=== PATIENT | female | born 1960 | race Caucasian/White ===

== ENCOUNTER → 2024-11-21 | Outpatient (CLI) | payer BC, SELFPAY ==
[2024-11-21 16:07] LABS: Collection Type, Urine Clean Catch
[2024-11-21 17:42] LABS: Bilirubin,Urine Negative (Negative); Blood,Urine Negative (Negative); Clarity,Urine Clear (Clear/Hazy); Color,Urine Lt-Yellow (Lt Yel-Yel); Culture Indicated,Urine Not Indicated; Glucose, Urine Negative (Negative); Ketones,Urine Negative (Negative); Leukocyte Esterase,Urine Negative (Negative); Nitrite,Urine Negative (Negative); Protein,Urine Negative (Neg - Trace); RBC,Urine 1 /hpf (0-3); Specific Gravity,Urine 1.016 (1.001-1.035); Squamous Epithelial Cell,Urine < 1 /hpf (0-5); Urobilinogen,Urine Negative mg/dL (0.0-1.0); WBC,Urine 1 /hpf (0-5)
== END | disposition home or self-care (01) ==
LOC: SLDO 16:05
PROVIDERS: PCP Internal Medicine; Referring Provider Internal Medicine; Visit Provider Internal Medicine
DX: N39.0 Urinary tract infection, site not specified (principal)
CPT/HCPCS: 81001

== ENCOUNTER → 2025-02-05 | Outpatient (CLI) | payer BC, SELFPAY ==
--- NOTE | 2025-02-05 11:04 | XR_ITS ---
Examination: PA lateral chest 2 views TECHNIQUE: Upright PA lateral chest 2 views Exam date and time: February 05, 2025 1133 hours Comparison August 23, 2023 INDICATIONS: Coughing one week, history pneumonia, diagnosis rheumatoid arthritis FINDINGS: Minimal prominence left ventricle Mild to moderate hyperexpansion No pneumonia or pulmonary edema Prominent osteopenia with mild kyphosis dorsal spine, mild to moderate diffuse thoracic disc narrowing IMPRESSION: Mild to moderate hyperexpansion No pneumonia or pulmonary edema
== END | disposition home or self-care (01) ==
PROVIDERS: PCP Internal Medicine; Referring Provider Internal Medicine; Visit Provider Internal Medicine
DX: R91.8 Other nonspecific abnormal finding of lung field (principal)
CPT/HCPCS: 71046

== ENCOUNTER → 2025-03-10 | Outpatient (BNVA) | payer BC, SELFPAY | END | disposition home or self-care (01) | PROVIDERS: PCP Internal Medicine; Referring Provider Internal Medicine; Visit Provider Urology | DX: N35.92 Unspecified urethral stricture, female (principal); G89.4 Chronic pain syndrome; R10.2 Pelvic and perineal pain; M06.9 Rheumatoid arthritis, unspecified; F41.9 Anxiety disorder, unspecified; Z87.891 Personal history of nicotine dependence | CPT/HCPCS: 81003; 99212; G0463 ==

== ENCOUNTER → 2025-04-07 | Outpatient (BNVA) | payer BC, SELFPAY | END | disposition home or self-care (01) | PROVIDERS: PCP Internal Medicine; Referring Provider Internal Medicine; Visit Provider Urology | DX: N35.92 Unspecified urethral stricture, female (principal); R10.2 Pelvic and perineal pain | CPT/HCPCS: 52281; 81003; 96372; A4217; A4649; C1894; J1580; A9270 ==

== ENCOUNTER → 2025-05-23 | Outpatient (CLI) | payer BC, SELFPAY ==
[2025-05-23 11:39] LABS: Glucose Estimated Average 111 mg/dL (80-131); Hemoglobin A1C 5.5 % Hgb (4.8-6.0)
[2025-05-23 11:49] LABS: Ferritin 17 ng/mL (7.3-270.7); Iron 46 mcg/dL (50-170); Total Iron Binding Capacity 382 mcg/dL (250-425)
[2025-05-23 11:59] LABS: Alanine Aminotransferase 8 U/L (10-49); Albumin, Serum 4.2 gm/dL (3.4-4.8); Albumin/Globulin Ratio 1.4 (1.2-2.2); Alkaline Phosphatase 96 U/L (46-116); Anion Gap 10 (7-16); Aspartate Amino Transferase 12 U/L (0-34); BUN/Creatinine Ratio 25 Ratio (12-20); Bilirubin,Total 0.5 mg/dL (0.3-1.2); Blood Urea Nitrogen 20 mg/dL (9-23); Calcium 9.2 mg/dL (8.3-10.6); Calcium (Corrected) 9.2 mg/dL (8.5-10.1); Carbon Dioxide 27.1 mMol/L (20.0-31.0); Cardiac Risk Estimate 3.3 RATIO (3.7-5.6); Chloride 107 mMol/L (98-107); Cholesterol 195 mg/dL (132-200); Creatinine (Component) 0.8 mg/dL (0.6-1.3); Free T4 (Free Thyroxine) 1.13 ng/dL (0.89-1.76); Globulin 2.9 gm/dL (2.3-3.5); Glucose 83 mg/dL (74-106); HDL Cholesterol 59 mg/dL (40-60); LDL Cholesterol,Calculated 116 mg/dL (0-130); Osmolality,Calculated 288 (275-295); Potassium 4.0 mMol/L (3.4-5.1); Sodium 144 mMol/L (136-145); Thyroid Stimulating Hormone 2.78 uIU/mL (0.55-4.78); Total Protein 7.1 gm/dL (5.7-8.2); Triglycerides 99 mg/dL (30-150); Uric Acid 3.7 mg/dL (3.1-7.8); eGFR > 60 See Note
[2025-05-23 13:19] LABS: Folate > 24.00 ng/mL (>5.38); Vitamin B12 312 pg/mL (211-911); Vitamin D 25 Hydroxy Total 24.3 ng/mL (7.3-40.2)
[2025-05-23 14:00] LABS: Basophils # (Auto) 0.1 Thou/mm3 (0.0-0.2); Basophils % (Auto) 1 % (0-2.5); Eosinophils # (Auto) 0.2 Thou/mm3 (0.0-0.5); Eosinophils % (Auto) 3 % (0-10); Hematocrit 40.4 % (36.0-46.0); Hemoglobin 12.9 g/dL (12.0-16.0); Immature Granulocytes Auto 0.02 Thou/mm3 (0.00-0.00); Lymphocytes # (Auto) 2.2 Thou/mm3 (1.0-4.8); Lymphocytes % (Auto) 37 % (10-50); Mean Corpuscular HGB Conc 31.9 g/dl (31.0-37.0); Mean Corpuscular Hemoglobin 29.1 pg (25.0-35.0); Mean Corpuscular Volume 91 fL (80-100); Monocytes # (Auto) 0.5 Thou/mm3 (0.0-0.8); Monocytes % (Auto) 9 % (0-12); Neutrophils # (Auto) 2.9 Thou/mm3 (1.8-7.7); Neutrophils % (Auto) 50 % (37-80); Nucleated Red Blood Cell # 0.00 Thou/mm3 (0.00-0.00); Nucleated Red Blood Cell % 0 /100 WBC (0); Platelet Count 280 Thou/mm3 (140-440); RDW Standard Deviation 48.1 fL (36.4-46.3); Red Blood Count 4.43 Miln/mm3 (4.00-5.20); White Blood Count 5.9 Thou/mm3 (3.6-11.0)
== END | disposition home or self-care (01) ==
LOC: COPL 10:22
PROVIDERS: PCP Internal Medicine; Referring Provider Internal Medicine; Visit Provider Internal Medicine
DX: Z00.00 Encounter for general adult medical examination without abnormal findings (principal); E55.9 Vitamin D deficiency, unspecified
CPT/HCPCS: 36415; 80053; 80061; 82306; 82607; 82728; 82746; 83036; 83540; 83550; 84439; 84443; 84550; 85025

== ENCOUNTER → 2025-06-09 | Outpatient (CLI) | payer BC, SELFPAY ==
--- NOTE | 2025-06-09 13:52 | XR_ITS ---
Examination: Hand, right 3 views Technique: Hand AP, oblique, lateral 3 views Date and time of exam: June 09, 2025 1424 hours INDICATIONS: Right hand pain beginning 3 months ago. FINDINGS: Severe osteopenia Erosive significant osteoarthritis second and third metacarpophalangeal joints as well as first carpometacarpal joints Old deformity at the base of the first metacarpal with old bone density at the base of the first metacarpal 3 mm No acute fracture IMPRESSION: Severe osteopenia Significant erosive arthritic change
--- NOTE | 2025-06-09 13:52 | XR_ITS ---
Examination: Knee bilateral, 6 views Technique: Knee AP, lateral, oblique, each knee total 6 views Date and time of exam: June 09, 2025 1414 hours INDICATIONS: Bilateral knee pain chronic worse the last 3 months FINDINGS: Moderate osteopenia Total right knee arthroplasty with satisfactory alignment No fracture or loosening of the prosthetic components Mild to moderate left knee tricompartment osteoarthritis No fracture Focal area of sclerosis in the distal femur 19 mm which may represent a bone infarct IMPRESSION: Total right knee arthroplasty with satisfactory alignment Mild to moderate left knee tricompartment osteoarthritis
--- NOTE | 2025-06-09 13:52 | XR_ITS ---
Examination: Lumbar spine, 5 views Technique: Lumbar spine AP, lateral, coned lateral lower lumbar spine, bilateral obliques 5 views Exam date and time: June 09, 2025 1414 hours INDICATIONS: Back pain years worse the last 3 months. FINDINGS: Severe osteopenia Thoracolumbar levoscoliosis 30 degrees Diffuse moderate facet arthropathy Grade 1 anterolisthesis L4 on L5 No lumbar fracture Advanced disc narrowing L1-L2, L2-L3, L4-L5 IMPRESSION: Advanced degenerative disc disease L1-L2, L2-L3, L4-L5
--- NOTE | 2025-06-09 13:52 | XR_ITS ---
Examination: Shoulder bilateral, 6 views Technique: Shoulder AP internal rotation, AP external rotation, Y view each shoulder total 6 views Exam date and time :June 09, 2025 at 1415 hours INDICATIONS: Bilateral shoulder pain years worse the last 3 months. FINDINGS: Severe osteopenia Bilateral moderate narrowing glenohumeral joints No shoulder fractures or dislocations No calcific tendinitis IMPRESSION: Bilateral moderate narrowing glenohumeral joints
== END | disposition home or self-care (01) ==
PROVIDERS: PCP Internal Medicine; Referring Provider Nurse Practitioner Family; Visit Provider Nurse Practitioner Family
DX: M17.12 Unilateral primary osteoarthritis, left knee (principal); M25.561 Pain in right knee; Z96.651 Presence of right artificial knee joint; M51.360 Other intervertebral disc degeneration, lumbar region with discogenic back pain only; M25.812 Other specified joint disorders, left shoulder; M25.811 Other specified joint disorders, right shoulder; M85.841 Other specified disorders of bone density and structure, right hand; M13.841 Other specified arthritis, right hand
CPT/HCPCS: 72110; 73030; 73130; 73562

== ENCOUNTER → 2025-07-14 | Outpatient (BNVA) | payer BC, SELFPAY | END | disposition home or self-care (01) | PROVIDERS: PCP Internal Medicine; Referring Provider Internal Medicine; Visit Provider Urology | DX: N35.92 Unspecified urethral stricture, female (principal); Z87.440 Personal history of urinary (tract) infections; Z87.442 Personal history of urinary calculi; M06.9 Rheumatoid arthritis, unspecified; F41.9 Anxiety disorder, unspecified; Z87.891 Personal history of nicotine dependence | CPT/HCPCS: 81003; 99212; G0463 ==

== ENCOUNTER → 2025-08-18 | Outpatient (CLI) | payer BC, SELFPAY | END | disposition home or self-care (01) | LOC: SLDO 14:54 | PROVIDERS: Referring Provider Urology; Visit Provider Urology | DX: N39.0 Urinary tract infection, site not specified (principal) | CPT/HCPCS: 87086 ==

== ENCOUNTER → 2025-08-18 | Outpatient (BNVA) | payer BC, SELFPAY | END | disposition home or self-care (01) | PROVIDERS: PCP Internal Medicine; Referring Provider Internal Medicine; Visit Provider Urology | DX: N35.92 Unspecified urethral stricture, female (principal); N39.0 Urinary tract infection, site not specified; Z53.8 Procedure and treatment not carried out for other reasons | CPT/HCPCS: 81003; 96372; A4217; A4649; C1894; J1580; A9270 ==

== ENCOUNTER → 2025-09-23 | Outpatient (CLI) | payer BC, SELFPAY ==
--- NOTE | 2025-09-23 13:05 | XR_ITS ---
Examination: Knee, left, 3 views Technique: Knee AP, lateral, oblique 3 views Date and time of exam: September 23, 2025, 1328 hours INDICATIONS: Injury to the knee 2 weeks ago, knee pain. FINDINGS: Severe osteopenia Moderate knee effusion Mild narrowing knee joint Calcification in the distal shaft of the femur No acute fracture IMPRESSION: No acute fracture
--- NOTE | 2025-09-23 13:05 | XR_ITS ---
Examination: Duplex scan of the lower extremity, unilateral left Date and time of exam: September 23, 2025, 1350 hours INDICATIONS: Left lower leg swelling and pain beginning 1 week ago Technique: Duplex scan of the extremity veins using B-mode/grayscale imaging and Doppler spectral analysis and color flow Attention is directed to internal echogenicity, compression and augmentation involving these veins, color flow assessment, spectral analysis Findings: Major deep venous structures in the extremity demonstrate normal course and caliber. There is no evidence of deep vein thrombosis. Normal color flow and spectral analysis Impression: Negative for DVT.. Hypoechoic area noted posterior to the tibialis anterior muscle 9.2 x 1.0 x 2.2 cm consistent with hematoma, consider MRI left lower leg follow-up to assess for plantaris tendon rupture, muscle hemorrhage
== END | disposition home or self-care (01) ==
PROVIDERS: PCP Internal Medicine; Referring Provider Internal Medicine; Visit Provider Internal Medicine
DX: S89.92XA Unspecified injury of left lower leg, initial encounter (principal); X58.XXXA Exposure to other specified factors, initial encounter; M79.89 Other specified soft tissue disorders
CPT/HCPCS: 73562; 93971

== ENCOUNTER → 2025-09-26 | Outpatient (BNVA) | payer BC, SELFPAY | END | disposition home or self-care (01) | PROVIDERS: Visit Provider Urology | DX: N35.92 Unspecified urethral stricture, female (principal); Z87.440 Personal history of urinary (tract) infections; Z87.891 Personal history of nicotine dependence | CPT/HCPCS: 52281; 81003; 96372; A4217; A4649; C1894; J1580; A9270 ==

== ENCOUNTER → 2025-10-22 | Outpatient (CLI) | payer BC, SELFPAY ==
[2025-10-27 07:31] LABS: Fecal Globin Result NOT DETECTED (NOT DETECTED)
== END | disposition home or self-care (01) ==
LOC: SLDO 11:21
PROVIDERS: PCP Internal Medicine; Referring Provider Internal Medicine; Visit Provider Internal Medicine
DX: Z00.00 Encounter for general adult medical examination without abnormal findings (principal)
CPT/HCPCS: 82274; G0328